=== PATIENT | female | born 1980 | race Caucasian/White ===

== ENCOUNTER → 2017-11-14 | Day surgery (SDC) | payer OTHER ==
[~2017-11-14] VITALS: Ht 162.6 cm; Wt 105.2 kg
[~2017-11-14] MED LIST: ALPRAZOLAM0.25 M1 PO; AMETHIA LO TAB1 EACH PO; METHYLPREDNISOLO4 M2 PO; MOXIFLOXACIN H400 M2 PO; NADOLOL20 M1 PO; PROBIOTIC250 MG PO; RELPAX40 M1 PO; VICODIN 5-3001 EACH PO; VYVANSE10 M1 PO; VYVANSE60 M1 PO; ZIPSOR25 M1 PO; ZOFRAN ODT4 M1 SL
--- NOTE | 2017-11-14 14:12 | Operative Report ---
Operative/Inv Procedure Report Surgery Date: 11/14/17 Name of Procedure: Laparoscopy left ovarian cystectomy peritoneal washings Pre-Operative Diagnosis: Pelvic mass Post-Operative Diagnosis: Same Estimated Blood Loss: scant Surgeon/Contact Center Representative: Domo SAMSON,Tamiko Barragan Anesthesia: general endotracheal tube Operative/Procedure Note Note: Patient was taken to the operating room she was placed in supine position after adequate induction of general anesthesia via endotracheal tube patient placed in dorsolithotomy lithotomy position. The abdomen was prepped and draped this point the bladder was catheterized using sterile Victor. C2 type was placed in the into lip of cervix. Sherman cannula was left in place surgery regowned and gloved. This point the abdomen was insufflated proximal CO2 2 L. Delivered stone S Kelvin needle was removed the 10 mm trocar was inserted atraumatically. The lysis sheath remained in place that she is a laparoscope placed under direct visualization 5 mm port was placed patient tolerated that well supported perineal washings were obtained with the port portal normal saline sent to pathology stent incision was made in the right ovary stone was sent to pathology hemostasis was apparent patient tolerated this procedure well. Pictures were taken This point all instruments from the abdomen under direct visualization incision at the umbilicus was also 0 for the fascia and 30 for the skin incision sterile dressings were applied the end the case Sherman cannula was moved Victor was removed from the abdomen Findings: Normal uterus ovaries bilaterally 4 cm simple cyst on the left ovary otherwise normal anatomy draped and prepped in the usual surgical fashion. A 22 Portuguese cystoscope sheath with a 30 angle lens was inserted into the mid-urethra with a long narrow stricture was encountered. Sequential dilatation with sounds were done from 14fr, 16fr., 18fr, 20fr, 22fr without significant difficulty. At this time, the cystoscope was then reinerted, and advanced into the bladder without difficulty. The bladder was noted to have the findings as discussed above. The bladder was then hydrodistended 2 with the irrigation fluid at 40 cm above the symphysis pubis. No evidence of tumor, increased petechiae, nor Hunner's ulceration was noted. Both ureteral orifices had clear reflux in their orthotopic position. No terminal bleed with drainage. Bladder capacity was normal. A 0.038 guide wire was placed into the bladder via cystoscope. Cystoscope was removed, leaving the guide wire in the bladder, under direct visualization. A 20fr tulalip tip victor was then rail-roaded over the guidewire and entered the bladder draining clear fluid. 10cc of water was placed in the balloon, prior to removing the wire. The patient tolerated procedure well and was taken to recovery room in satisfactory condition. moved Victor was removed from the abdomen Findings: Normal uterus ovaries bilaterally 4 cm simple cyst on the left ovary otherwise normal anatomy
== END ==
LOC: STS 03:10
DX: N83.292 Other ovarian cyst, left side (principal); R19.00 Intra-abdominal and pelvic swelling, mass and lump, unspecified site
CPT/HCPCS: 81025; 88305; J2250; J2405